=== PATIENT | female | born 1955 | race African-American/Black ===

== ENCOUNTER 2018-05-09 13:11 | Emergency (ER) | payer OTHER ==
[~2018-05-09] VITALS: Ht 160 cm; Wt 49.9 kg
[2018-05-09 13:29] VITALS: Ht 160 cm; Wt 49.9 kg
[2018-05-09 15:01] LABS: CALCIUM 8.9 mg/dL (8.5-10.1); CARBON DIOXIDE 24.1 mmol/L (21-32); CHLORIDE SERUM 110 mmol/L (98-107); CREATININE SERUM 0.8 mg/dL (0.6-1.0); GFR1 > 60 mL/min; GLUCOSE SERUM 125 mg/dL (74-106); POTASSIUM SERUM 4.1 mmol/L (3.5-5.1); SODIUM SERUM 144 mmol/L (136-145)
[2018-05-09 15:06] LABS: ALKALINE PHOSPHATASE 119 U/L (46-116); ALT/SGPT 36 U/L (14-59); AST/SGOT 21 U/L (15-37); BILIRUBIN TOTAL 0.23 mg/dL (0.20-1.00); TOTAL PROTEIN, SERUM 6.7 g/dL (6.4-8.2)
[2018-05-09 15:10] LABS: CHOLESTEROL 91 mg/dL (<200)
[2018-05-09 15:13] LABS: BASOPHIL % 0.3 % (0-2); PLATELET COUNT 258 x10^3mcL (130-400); RED CELL DISTRIBUTION WIDTH 13.4 % (11.5-14.5)
[2018-05-09 17:49] LABS: AMPHETAMINE QUAL UR NONE DETECTED (See below)
[2018-05-09 19:24] VITALS: BP 130/71
== END 2018-05-09 19:24 ==
LOC: ED 13:11
PROVIDERS: Specialist
DX: F02.80 Dementia in other diseases classified elsewhere, unspecified severity, without behavioral disturbance, psychotic disturbance, mood disturbance, and anxiety (principal); G30.9 Alzheimer's disease, unspecified; F31.9 Bipolar disorder, unspecified; E78.00 Pure hypercholesterolemia, unspecified; F29 Unspecified psychosis not due to a substance or known physiological condition; Z86.73 Personal history of transient ischemic attack (TIA), and cerebral infarction without residual deficits; Z98.890 Other specified postprocedural states; Z88.6 Allergy status to analgesic agent; Z88.0 Allergy status to penicillin
CPT/HCPCS: G0480; J2060; J7030; Q0092